=== PATIENT | male | born 1955 | race African-American/Black ===

== ENCOUNTER 2017-03-19 10:51 | Emergency (ER) | payer SELFPAY ==
[~2017-03-19] VITALS: Ht 172.7 cm; Wt 93.0 kg
[2017-03-19] MEDS ORDERED: EC-NAPROSYN500 MG PO (12:11)
[2017-03-19] MEDS ORDERED: LORTAB 5-325 MG1 TAB PO (12:11)
[2017-03-19] MEDS ORDERED: AMLODIPINE10 MG PO (12:13)
[2017-03-19 12:45] VITALS: BP 180/90
== END 2017-03-19 12:45 | disposition home or self-care (01) | DRG 552 ==
LOC: ED 10:51
DX: S16.1XXA Strain of muscle, fascia and tendon at neck level, initial encounter (principal); I10 Essential (primary) hypertension; M54.31 Sciatica, right side; X58.XXXA Exposure to other specified factors, initial encounter